=== PATIENT | male | born 1960 ===

== ENCOUNTER → 2018-08-28 22:16 | Outpatient (ROUT) | payer OTHER, SELFPAY ==
[2018-08-28 22:30] LABS: Add Manual Diff / Slide Review NO; Basophils Absolute Auto 100 /uL (0-100); Basophils Percent Auto 1.1 % (0-2); Eosinophils Absolute Auto 200 /uL (0-450); Eosinophils Percent Auto 2.6 % (2-4); Hematocrit 49.8 % (41-53); Hemoglobin 16.8 g/dL (13.5-17.5); Lymphocytes Absolute Auto 2900 /uL (1100-4500); Lymphocytes Percent Auto 33.3 % (25-40); Mean Corpuscular HGB Conc 33.7 % (30-36); Mean Corpuscular Hemoglobin 29.7 PG (26-34); Mean Corpuscular Volume 88.2 fL (80-100); Monocytes Absolute Auto 600 /uL (0-900); Monocytes Percent Auto 7.5 % (3-14); Neutrophils Absolute Auto 4800 /uL (1500-7000); Neutrophils Percent Auto 55.5 % (50-75); Platelet Count 232 X10^3/uL (150-400); Red Blood Cell Count 5.65 X10^6/uL (4.5-5.9); White Blood Cell Count 8.6 X10^3/uL (4.5-11.0)
[2018-08-28 22:55] LABS: Erythrocyte Sedimentation Rate 4 MM/HR (0-15)
[2018-08-29 00:13] LABS: Alanine Aminotransferase 20 IU/L (21-72); Albumin 4.6 g/dL (3.5-5.0); Albumin Globulin Ratio 1.4 (1.0-2.8); Alkaline Phosphatase 60 U/L (38-126); Aspartate Aminotransferase 24 IU/L (17-59); BUN Creatinine Ratio 14.5 (6-22); Bilirubin Total 0.6 mg/dL (0.2-1.3); Blood Urea Nitrogen 16 mg/dL (9-20); Calcium 10.1 mg/dL (8.4-10.2); Carbon Dioxide 29 mmol/L (22-32); Chloride 104 mmol/L (98-107); Cholesterol 231 mg/dL (140-199); Estimated Glomerular Filt Rate > 60.0 mL/min (>60); Globulin 3.3 g/dL (1.7-4.1); Glucose 90 mg/dL (80-110); HDL Cholesterol 48 mg/dL (40-60); HEMOLYSIS < 15 (0-50); LDL Cholesterol Calculated 158 mg/dL (<100); Potassium 5.1 mmol/L (3.4-5.1); Sodium 140 mmol/L (137-145); Total Protein 7.9 g/dL (6.3-8.2); Triglycerides 126 mg/dL (35-150)
[2018-08-29 00:27] LABS: Free T3, Triiodothyronine Free 3.61 pg/mL (2.77-5.27); Free T4, Direct Thyroxine 1.29 ng/dL (0.78-2.19); Triiodothryronine T3 Uptake 33.1 % (23.5-40.5)
[2018-08-29 00:40] LABS: Prostate Specific Antigen 2.88 ng/mL (0.10-4.00)
[2018-08-29 00:41] LABS: Thyroid Stimulating Hormone 1.31 uIU/mL (0.47-4.68)
[2018-08-31 17:17] LABS: Triiodothyronine T3 Total 98 ng/dL (76-181)
[2018-09-01 16:02] LABS: Anti Thyroglobulin Antibody < 1 IU/mL (< 2); Thyroid Peroxidase Antibodies 1 IU/mL (< 9)
[2018-09-02 11:43] LABS: sdLDL 39.5 mg/dL (<50.0)
== END ==
PROVIDERS: Visit Provider Family Medicine
DX: R00.1 Bradycardia, unspecified (principal); R61 Generalized hyperhidrosis; E78.5 Hyperlipidemia, unspecified; N40.1 Benign prostatic hyperplasia with lower urinary tract symptoms; Z00.00 Encounter for general adult medical examination without abnormal findings
CPT/HCPCS: 36415; 80053; 80061; 84153; 84439; 84443; 84479; 84480; 84481; 85025; 85651; 86376; 86800